=== PATIENT | female | born 2000 | race Caucasian/White ===

== ENCOUNTER 2020-08-14 09:46 | Outpatient (CLI) | payer BC, SELFPAY ==
--- NOTE | 2020-08-14 12:00 | NEURO_ITS ---
Impression: # Complains of buzzing sensation in lower extremities. # Normal nerve conduction study including F-waves. # Normal needle/EMG exam. # Clinical correlation recommended. Nerve Conduction Studies Anti Sensory Summary Table Stim Site NR Peak (ms) P-T Amp (?V) Site1 Site2 Delta-P (ms) Dist (cm) Sánchez (m/s) Left Sup Fibular Anti Sensory (Ant Lat Mall) 14 cm 3.1 30.4 14 cm Ant Lat Mall 3.1 16.0 52 Right Sup Fibular Anti Sensory (Ant Lat Mall) 14 cm 3.3 17.4 14 cm Ant Lat Mall 3.3 16.0 48 Left Sural Anti Sensory (Lat Mall) Calf 3.1 43.6 Calf Lat Mall 3.1 16.0 52 Right Sural Anti Sensory (Lat Mall) Calf 3.4 3.9 Calf Lat Mall 3.4 16.0 47 Motor Summary Table Stim Site NR Onset (ms) O-P Amp (mV) Site1 Site2 Delta-0 (ms) Dist (cm) Sánchez (m/s) Left Peroneal Motor (Vastus Med) Ankle 4.2 2.7 Popit Ankle 7.3 40.0 55 Popit 11.5 2.2 Right Peroneal Motor (Vastus Med) Ankle 4.1 3.0 Popit Ankle 7.1 37.0 52 Popit 11.2 3.0 Left Tibial Motor (Abd Klein Brev) Ankle 3.7 11.2 Knee Ankle 7.8 41.0 53 Knee 11.5 8.4 Right Tibial Motor (Abd Klein Brev) Ankle 3.7 6.4 Knee Ankle 7.0 39.0 56 Knee 10.7 6.6 F Wave Studies NR F-Lat (ms) L-R F-Lat (ms) Left Peroneal (Mrkrs) (EDB) 44.80 0.01 Right Peroneal (Mrkrs) (EDB) 44.80 0.01 Left Tibial (Mrkrs) (Abd Hallucis) 45.83 0.83 Right Tibial (Mrkrs) (Abd Hallucis) 45.00 0.83 EMG Side Muscle Nerve Root Ins Act Fibs Amp Dur Recrt Comment Right AntTibialis Dp Br Fibular L4-5 Nml Nml Nml Nml Nml Right Gastroc Tibial S1-2 Nml Nml Nml Nml Nml Right Fibularis Long Sup Br Fibular L5-S1 Nml Nml Nml Nml Nml Right Flex Dig Long Tibial L5-S2 Nml Nml Nml Nml Nml Right Ext Dig Brev Dp Br Fibular L5, S1 Nml Nml Nml Nml Nml Left AntTibialis Dp Br Fibular L4-5 Nml Nml Nml Nml Nml Left Gastroc Tibial S1-2 Nml Nml Nml Nml Nml Left Fibularis Long Sup Br Fibular L5-S1 Nml Nml Nml Nml Nml Left Flex Dig Long Tibial L5-S2 Nml Nml Nml Nml Nml Left Ext Dig Brev Dp Br Fibular L5, S1 Nml Nml Nml Nml Nml MTDD
== END 2020-08-14 09:47 | disposition home or self-care (01) ==
LOC: ANHNEURO 09:48
PROVIDERS: PCP Family Medicine; Visit Provider Psychiatry & Neurology Neurology
DX: R20.2 Paresthesia of skin (principal)
CPT/HCPCS: 95886; 95910

== ENCOUNTER 2020-09-01 12:17 | Outpatient (CLI) | payer BC, SELFPAY ==
--- NOTE | ~2020-09-01 | MR_ITS ---
EXAMINATION: MR brain/brain stem wo/w con DATE: 09/01/2020 13:50 INDICATION: Paresthesias of skin. TECHNIQUE: Magnetic resonance imaging (MRI) of the brain and brainstem was performed without and with 10 mL MultiHance intravenous contrast. Sequences included sagittal and axial T1-weighted FSE, axial diffusion-weighted FS EPI, axial T2*-weighted GRE, axial T2-weighted FLAIR Propeller, and axial T2-we ighted Propeller. Postcontrast sequences included axial and coronal T1-weighted FSE. Apparent diffusi on coefficient (ADC) maps were created. COMPARISON: None. FINDINGS: There is no intracranial hemorrhage, acute infarction, or abnormal intracranial mass lesion . The ventricles are normal in size. The paranasal sinuses are clear. The orbits are normal. The mast oid air cells are normal. IMPRESSION: 1. Normal brain. Reviewed, dictated and finalized at location A. 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 Normal brain.
--- NOTE | ~2020-09-01 | MR_ITS ---
EXAMINATION: MR cervical spine wo/w con EXAM DATE: 09/01/2020 13:50 INDICATION: Skin paresthesia. Bilateral foot numbness. Headaches. Fatigue. TECHNIQUE: Multi-sequential, multiplanar MR images of the cervical spine were obtained without contra st. Axial T2, axial T2 MERGE sequence. Sagittal T1, T2, T2 fat saturation images also obtained. Axi al T1 weighted sequence. Patient was then injected with 10 mL Multihance intravenous contrast and re imaged. Postcontrast axial and sagittal T1-weighted fat saturation sequences were obtained. There is no prior study for comparison. FINDINGS: The vertebral bodies are aligned in the AP dimension. Vertebral body and disc heights are well-maintained. There are no suspicious marrow signal abnormalities. The spinal cord signal intensit y and intrinsic morphology is normal. Cervicomedullary junction is normal in appearance. There are no areas of abnormal enhancement on the post contrast images. Level by level evaluation: C2-C3: Disc does not extend beyond the endplate margin. Uncovertebral joint arthropathy: None. Facet joint arthropathy: Mild bilateral. Neural foraminal stenosis: No stenosis. Central canal stenosis: No stenosis. C3-C4: Disc does not extend beyond the endplate margin. Uncovertebral joint arthropathy: None. Facet joint arthropathy: Mild bilateral. Neural foraminal stenosis: No stenosis. Central canal stenosis: No stenosis. C4-C5: Disc does not extend beyond the endplate margin. Uncovertebral joint arthropathy: None. Facet joint arthropathy: Mild bilateral. Neural foraminal stenosis: No stenosis. Central canal stenosis: No stenosis. C5-C6: Disc does not extend beyond the endplate margin. Uncovertebral joint arthropathy: None. Facet joint arthropathy: Mild bilateral. Neural foraminal stenosis: No stenosis. Central canal stenosis: No stenosis. C6-C7: Disc does not extend beyond the endplate margin. Uncovertebral joint arthropathy: None. Facet joint arthropathy: Minimal bilateral. Neural foraminal stenosis: No stenosis. Central canal stenosis: No stenosis. C7-T1: Disc does not extend beyond the endplate margin. Uncovertebral joint arthropathy: None. Facet joint arthropathy: Minimal bilateral. Neural foraminal stenosis: No stenosis. Central canal stenosis: No stenosis. IMPRESSION: Mild cervical facet arthropathy. Otherwise unremarkable exam. Reviewed, dictated and finalized at location A. [employer] ADMINISTRATOR
[2020-09-01 13:03] LABS: Estimated Glomerular Filt Rate > 60
== END 2020-09-01 12:18 | disposition home or self-care (01) ==
PROVIDERS: PCP Family Medicine; Visit Provider Psychiatry & Neurology Neurology
DX: R20.2 Paresthesia of skin (principal)
CPT/HCPCS: 70553; 72156; A9577

== ENCOUNTER → 2021-11-17 13:25 | Outpatient (CLI) | payer OTHER, SELFPAY ==
--- NOTE | ~2021-11-17 | XR_ITS ---
EXAM: XR hip BI 2V w AP pelvis HISTORY: Other bursitis of hip, bilateral . COMPARISON: 04/09/2020. FINDINGS: Normal mineralization. No fracture or dislocation. No lytic or blastic lesion. Mild bilate ral superior joint space narrowing. No erosion or periosteal change. Soft tissues within normal limit s. IMPRESSION: Radiographic findings suggestive of bilateral hip osteoarthritis. Reviewed, dictated and finalized at location K.
== END ==
PROVIDERS: PCP Internal Medicine; Visit Provider Internal Medicine
DX: M70.71 Other bursitis of hip, right hip (principal); M70.72 Other bursitis of hip, left hip
CPT/HCPCS: 73521

== ENCOUNTER → 2022-09-03 08:21 | Outpatient (CLI) | payer OTHER, SELFPAY ==
--- NOTE | ~2022-09-03 | XR_ITS ---
AP and oblique views of the SI joints CLINICAL HISTORY: Sacrococcygeal disorder FINDINGS: SI joints and hip joints appear intact. No erosive or sclerotic change. Soft tissues are un remarkable. IMPRESSION: No significant abnormality seen. Reviewed, dictated and finalized at location . RETE SMOOTHER
== END ==
PROVIDERS: PCP Internal Medicine; Visit Provider Internal Medicine
DX: M53.3 Sacrococcygeal disorders, not elsewhere classified (principal); G89.29 Other chronic pain
CPT/HCPCS: 72202

== ENCOUNTER 2022-10-10 04:59 | Emergency (ER) | payer OTHER, SELFPAY ==
--- NOTE | ~2022-10-10 | CT_ITS ---
EXAMINATION: CT abdomen pelvis wo con DATE: 10/10/2022 07:38 INDICATION: TECHNIQUE: Computed tomography (CT) of the abdomen and pelvis was performed without intravenous contr ast. Automated exposure control and iterative reconstruction technique were employed. Exam dose: 247 .07 mGy-cm total exam DLP. COMPARISON: None. FINDINGS: There is an approximately 2.2 x 2.8 mm distal left ureteral calculus situated near the left ureterovesical junction with mild left hydroureteronephrosis. No other urinary tract calculus is noted. Normal heart size. No pericardial or pleural effusion. The lung bases are clear. The liver, spleen, pancreas, adrenal glands and kidneys are otherwise unremarkable. The urinary bladder, uterus and adnexal areas are unremarkable. Normal appendix. No bowel obstruction or intraperitoneal free air. Included skeletal structures are unremarkable. IMPRESSION: 2.2 x 2.8 mm distal left ureteral calculus with mild left hydroureteronephrosis Reviewed, dictated and finalized at Location A. Reviewed, dictated and finalized at location A. IMPRESSION: 2.2 x 2.8 mm distal left ureteral calculus with mild left hydroure teronephrosis
[2022-10-10 05:02] VITALS: BP 118/85; PULSE 90; RESP 18; TEMP 36.6; O2SAT 99
[2022-10-10] MEDS: ONDANSETRON INJ 4 MG/2 ML VIAL (05:25)
[2022-10-10 05:37] LABS: Basophils Absolute Auto 0.1 K/mm3 (0.0-0.1); Basophils Percent Auto 1.2 % (0.2-1.2); Eosinophils Absolute Auto 0.2 K/mm3 (0-0.3); Hematocrit 40.4 % (37.0-47.0); Hemoglobin 13.8 g/dL (12.0-15.0); Immature Granulocyte Absolute 0.04 K/mm3 (0.00-0.031); Immature Granulocyte Percent A 0.5 % (0-0.5); Lymphocytes Absolute Auto 2.84 K/mm3 (0.9-3.2); Lymphocytes Percent Auto 34.1 % (18.3-44.2); Mean Corpuscular HGB Conc 34.2 g/dl (32-36); Mean Corpuscular Hemoglobin 30.7 pg (26-34); Mean Corpuscular Volume 89.8 fl (80-100); Mean Platelet Volume 9.4 fl (7.4-10.4); Monocytes Absolute Auto 0.5 K/mm3 (0.1-0.6); Monocytes Percent Auto 6.5 % (2.6-8.5); Neutrophils Absolute Auto 4.6 K/mm3 (1.3-6.7); Neutrophils Percent Auto 55.7 % (45.5-73.1); Platelet Count Result 241 k/mm3 (150-375); Red Cell Distribution Width 11.9 % (11.5-14.5); White Blood Count 8.3 K/mm3 (4.5-10.0)
[2022-10-10 05:59] VITALS: BP 138/86; PULSE 60; RESP 16; O2SAT 99
[2022-10-10 06:00] LABS: Alanine Aminotransferase 24 U/L (6-35); Albumin Level 4.8 g/dL (3.5-5.1); Alkaline Phosphatase 82 U/L (38-126); Anion Gap 11 mmol/L (8-16); Aspartate Amino Transferase 28 U/L (14-36); Blood Urea Nitrogen 11 mg/dL (7-17); Calcium 9.5 mg/dL (8.4-10.2); Carbon Dioxide 22 mmol/L (22-30); Chloride 104 mmol/L (98-107); Estimated CRCL calculation 84 ml/min; Estimated Glomerular Filt Rate > 60; Glucose 119 mg/dL (65-110); Potassium 4.2 mmol/L (3.4-5.0); Sodium 137 mmol/L (137-145)
--- NOTE | 2022-10-10 06:40 | ED.GENADULT ---
HPI - General Adult General Chief complaint: Abdominal Pain <Primitivo Valles MD - Last Filed: 10/10/22 06:45> Stated complaint: abd'l pain <Primitivo Valles MD - Last Filed: 10/10/22 06:45> Time Seen by Provider: 10/10/22 05:28 <Primitivo Valles MD - Last Filed: 10/10/22 06:45> History of Present Illness HPI narrative: This is a 22-year-old female presenting ED with chief complaint of abdominal pain. Patient states that 8:30 p.m. she started have a sharp pain in the left lower quadrant that radiates up to her left flank. It is 8 out 10 intensity and getting worse. She has never experienced pain like this before there are no late exacerbating or alleviating factors. Associated with 2 episodes of nausea and vomiting. She denies fever or chills. She has noticed that she has had the increased urinary urgency and frequency but no dysuria. Patient has had UTIs in the past. Patient is on control. She is on her menstrual period at this time <Primitivo Valles MD - Last Filed: 10/10/22 06:45> Related Data Home medications: Home Medications Medication Instructions Recorded Confirmed meloxicam 15 mg tablet 15 mg PO DAILY PRN 08/25/22 <Primitivo Valles MD - Last Filed: 10/10/22 06:45> Allergies/adverse reactions: Allergies Allergy/AdvReac Type Severity Reaction Status Date / Time No Known Allergies Allergy Verified 10/10/22 05:54 <Primitivo Valles MD - Last Filed: 10/10/22 06:45> [facility] Past Medical History Medical History: Medical History Anxiety Arthritis BMI 20.0-20.9, adult Femoral anteversion of both lower extremities Migraine <Primitivo Valles MD - Last Filed: 10/10/22 06:45> Surgical History Surgical History: Surgical History [place] teeth removed <Primitivo Valles MD - Last Filed: 10/10/22 06:45> Family History Family History: Family History Father Family history of mental disorder Family history of attention deficit hyperactivity disorder (ADHD) Sibling Family history of mental disorder Family history of migraine headaches Family history of attention deficit hyperactivity disorder (ADHD) Mother Depression Family history of anemia <Primitivo Valles MD - Last Filed: 10/10/22 06:45> Social History Social History: Social History Smoking status: Never smoker Second hand tobacco smoke exposure: No Alcohol intake: current Drinks per week: 2 Alcohol use details: occasional Substance use: never Substance use type: does not use Lack of Transportation: No Lack of Food: Never True Current Housing: I Have Housing Concerned About Future Housing: No Difficulty Paying Gas/Electric Bills: No Difficulty Paying for Meds: No Currently Unemployed: No Living arrangements: with family Additional living arrangements comments: Fianc?' Occupation/Education: 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 Head: atraumatic. EYES: EOMI, NOSE: Atraumatic NECK: Trachea midline RESPIRATORY: No increased rate of breathing, clear to auscultation bilaterally CARDIOVASCULAR: RRR, ABDOMINAL: Tenderness to palpation in the left lower quadrant, rebound tenderness, the rest the abdomen is soft nontender no guarding rebound. There is left-sided CVA tenderness. MUSCULOSKELETAl: No obvious deformities NEURO: Alert. Moving 4/4 extremities SKIN:: Warm, dry. Normal color PSYCHIATRIC: Normal affect
[2022-10-10 06:41] VITALS: PULSE 71; RESP 11; O2SAT 100
[2022-10-10 06:45] VITALS: PULSE 73; RESP 17; O2SAT 99
[2022-10-10 06:46] VITALS: BP 122/86; PULSE 74; RESP 12; O2SAT 100
[2022-10-10] MEDS: SODIUM CHLORIDE 0.9% IV 2,000 ML 999 ML IV CONT (06:48)
[2022-10-10] MEDS: HYDROmorphone HCL INJ (*CRX) 1 MG/ML SYR 0.5 MG IV PUSH ×2 (06:49→08:43)
[2022-10-10] MEDS: ONDANSETRON INJ 4 MG/2 ML VIAL IV PUSH (06:50)
[2022-10-10 07:19] LABS: Beta HCG Quantitative < 2.39 mIU/ML
[2022-10-10 08:38] LABS: Appearance Urine Cloudy (Clear); Bacteria Urine None Seen /hpf; Bilirubin Urine Negative (Negative); Blood Urine 1+ (Negative); Color Urine Yellow (Yellow); Glucose Urine UA Negative (Negative); Ketones Urine Trace mg/dL (Negative); Leukocyte Esterase Ur Negative LEU/UL (Negative); Nitrate Urine Negative (Negative); Non Pathogenic Casts 0-2; Protein Urine Negative (Negative); Specific Grav Ur 1.021 (1.001-1.035); Squamous Epithelial Cell Urine None seen /hpf (Few); Urobilinogen Urine 0.2 mg/dL (<2.0); WBC Urine 0-5 /hpf; pH Urine 6.5 (5.0-9.0)
[2022-10-10 08:42] LABS: Add Urine Microscopic? YES
[2022-10-10] MEDS: TAMSULOSIN HCL 0.4 MG CAPSULE PO (08:56)
[2022-10-10] MEDS: KETOROLAC 15 MG/ML VIAL (*BKC) IV PUSH (08:56)
[2022-10-10 09:06] VITALS: BP 128/95; PULSE 131; RESP 22; O2SAT 100
== END 2022-10-10 09:12 | disposition home or self-care (01) ==
PROVIDERS: Emergency Provider Emergency Medicine; PCP Internal Medicine
DX: N13.2 Hydronephrosis with renal and ureteral calculous obstruction (principal); M19.90 Unspecified osteoarthritis, unspecified site
CPT/HCPCS: 36415; 74176; 80053; 81001; 84702; 85025; 96361; 96374; 96375; 96376; 99284; A9270; J0131; J1170; J1885; J2405; J7030